=== PATIENT | male | born 1960 | race Caucasian/White ===

== ENCOUNTER 2017-10-14 09:15 | Emergency (ER) | payer BC ==
[2017-10-14] MEDS ORDERED: Sodium Chloride 0.9% 1,000 ML IV ONE (09:18)
[2017-10-14] MEDS ORDERED: Ketorolac 30 MG/ML SDV IVPUSH ONE (09:18)
[2017-10-14] MEDS ORDERED: Ondansetron 4 MG/2 ML SDV IVPUSH ONE (09:18)
--- NOTE | 2017-10-14 09:19 | EDM.PDOC ---
ED HPI GENERAL MEDICAL PROBLEM - General Stated Complaint: LOWER BACK AND RIGHT SIDE PAIN Time Seen by Provider: 10/14/17 09:19 Source of Information: Reports: Patient - History of Present Illness INITIAL COMMENTS - FREE TEXT/NARRATIVE: HISTORY AND PHYSICAL: History of present illness: [Patient presents with a history of right flank pain radiating to the groin 8 out of 10 prior to arrival pain resolved shortly after arrival no nausea vomiting chills sweats no fever] Review of systems: As per history of present illness and below otherwise all systems reviewed and negative. Past medical history: As per history of present illness and as reviewed below otherwise noncontributory. Surgical history: As per history of present illness and as reviewed below otherwise noncontributory. Social history: No reported history of drug or alcohol abuse. Family history: As per history of present illness and as reviewed below otherwise noncontributory. Physical exam: HEENT: Atraumatic, normocephalic, pupils reactive, negative for conjunctival pallor or scleral icterus, mucous membranes moist, throat clear, neck supple, nontender, trachea midline. Lungs: Clear to auscultation, breath sounds equal bilaterally, chest nontender. Heart: S1S2, regular, negative for clicks, rubs, or JVD. Abdomen: Soft, nondistended, nontender. Negative for masses or hepatosplenomegaly. Negative for costovertebral tenderness. Pelvis: Stable nontender. Genitourinary: Deferred. Rectal: Deferred. Extremities: Atraumatic, negative for cords or calf pain. Neurovascular unremarkable. Neuro: Awake, alert, oriented. Cranial nerves II through XII unremarkable. Cerebellum unremarkable. Motor and sensory unremarkable throughout. Exam nonfocal. Diagnostics: []CBC CMP lipase UA with culture stone sent for pathology Urine was filtered and 2 stones were able to be contact on urination is had past prior CT study and were noted in his bladder Therapeutics: [1 L normal saline bolus Toradol 30 mg IV Zofran 8 mg IV] Impression: Ureteral stones -passed, sent for culture and pathology Definitive disposition and diagnosis as appropriate pending reevaluation and review of above. Right Middle Back Pain Score (Numeric/FACES): 9 - Related Data Allergies Allergy/AdvReac Type Severity Reaction Status Date / Time omeprazole Allergy Anaphylactic Verified 10/14/17 09:34 Shock Home Meds: Home Meds Multivitamin [Multivitamins] 1 tab PO DAILY 05/01/16 [History] Past Medical History HEENT History: Reports: Allergic Rhinitis Endocrine/Metabolic History: Reports: Obesity/BMI 30+ - Past Surgical History Musculoskeletal Surgical History: Reports: Arthroscopic Knee Social & Family History - Family History Family Medical History: Noncontributory ED ROS GENERAL - Review of Systems Review Of Systems: See Below ED EXAM, GENERAL - Physical Exam Exam: See Below Course - Vital Signs Last Recorded V/S: Last Vital Signs Temp 98.7 F 10/14/17 09:27 Pulse 97 10/14/17 09:27 Resp 18 10/14/17 09:27 BP 130/96 H 10/14/17 09:27 Pulse Ox 94 L 10/14/17 09:27 - Orders/Labs/Meds Orders: Active Orders 24 hr Category Date Time Status Abdomen Pelvis wo Cont [CT] Stat Exams 10/14/17 09:18 Taken UA W/MICROSCOPIC [URIN] Stat Lab 10/14/17 10:31 Ordered Labs: Laboratory Tests 10/14/17 10/14/17 10/14/17 Range/Units 09:31 09:31 10:31 WBC 6.83 (4.0-11.0) K/uL RBC 4.89 (4.50-5.90) M/uL Hgb 15.9 (13.0-17.0) g/dL Hct 45.1 (38.0-50.0) % MCV 92.2 (80.0-98.0) fL MCH 32.5 H (27.0-32.0) pg MCHC 35.3 (31.0-37.0) g/dL RDW Std Deviation 43.3 (28.0-62.0) fl RDW Coeff of Luc 13 (11.0-15.0) % Plt Count 192 (150-400) K/uL MPV 10.80 (7.40-12.00) fL Neut % (Auto) 57.4 (48.0-80.0) % Lymph % (Auto) 32.4 (16.0-40.0) % [place] % (Auto) 7.8 (0.0-15.0) % Eos % (Auto) 2.0 (0.0-7.0) % Baso % (Auto) 0.4 (0.0-1.5) % Neut # (Auto) 3.9 (1.4-5.7) K/uL Lymph # (Auto) 2.2 (0.6-2.4) K/uL [place] # (Auto) 0.5 (0.0-0.8) K/uL Eos # (Auto) 0.1 (0.0-0.7) K/uL Baso # (Auto) 0.0 (0.0-0.1) K/uL Nucleated RBC % 0.0 /100WBC Nucleated RBCs # 0 K/uL Sodium 139 (136-148) mmol/L Potassium 4.6 (3.5-5.1) mmol/L Chloride 107 (98-107) mmol/L Carbon Dioxide 25.8 (21.0-32.0) mmol/L BUN 14 (7.0-18.0) mg/dL Creatinine 1.1 (0.8-1.3) mg/dL Est Cr Clr Drug Dosing TNP Estimated GFR (MDRD) > 60.0 ml/min Glucose 109 H (74-106) mg/dL Calcium 8.5 (8.5-10.1) mg/dL Total Bilirubin 0.4 (0.2-1.0) mg/dL AST 17 (15-37) IU/L ALT 20 (14-63) IU/L Alkaline Phosphatase 89 (46-116) U/L Total Protein 6.9 (6.4-8.2) g/dL Albumin 3.7 (3.4-5.0) g/dL Globulin 3.2 (2.0-3.5) g/dL Albumin/Globulin Ratio 1.2 L (1.3-2.8) Lipase 144 (73-393) U/L Urine Color YELLOW Urine Appearance CLEAR Urine pH 6.0 (5.0-8.0) Ur Specific [place] 1.020 (1.001-1.035) Urine Protein NEGATIVE (NEGATIVE) mg/dL Urine Glucose (UA) NEGATIVE (NEGATIVE) mg/dL Urine Ketones NEGATIVE (NEGATIVE) mg/dL Urine Occult Blood MODERATE (NEGATIVE) Urine Nitrite NEGATIVE (NEGATIVE) Urine Bilirubin NEGATIVE (NEGATIVE) Urine Urobilinogen 0.2 (<2.0) EU/dL Ur Leukocyte Esterase NEGATIVE (NEGATIVE) Meds: Medications Discontinued Medications Generic Name Dose Route Start Last Admin Trade Name Freq PRN Reason Stop Dose Admin Sodium Chloride 1,000 mls @ 999 mls/hr 10/14/17 09:18 10/14/17 09:56 Normal Saline IV 10/14/17 10:18 999 mls/hr STAT ONE Administration Ketorolac Tromethamine 30 mg 10/14/17 09:18 10/14/17 09:36 Toradol IVPUSH 10/14/17 09:19 30 mg ONETIME ONE Administration Ondansetron HCl 8 mg 10/14/17 09:18 10/14/17 09:36 Zofran IVPUSH 10/14/17 09:19 8 mg ONETIME ONE Administration Departure - Departure Time of Disposition: 11:04 Disposition: Home, Self-Care 01 Condition: Good Clinical Impression: Ureteral stone - Discharge Information Additional Instructions: The following information is given to patients seen in the emergency department who are being discharged to home. This information is to outline your options for follow-up care. We provide all patients seen in our emergency department with a follow-up referral. The need for follow-up, as well as the timing and circumstances, are variable depending upon the specifics of your emergency department visit. If you don't have a primary care physician on staff, we will provide you with a referral. We always advise you to contact your personal physician following an emergency department visit to inform them of the circumstance of the visit and for follow-up with them and/or the need for any referrals to a consulting specialist. The emergency department will also refer you to a specialist when appropriate. This referral assures that you have the opportunity for follow-up care with a specialist. All of these measure are taken in an effort to provide you with optimal care, which includes your follow-up. Under all circumstances we always encourage you to contact your private physician who remains a resource for coordinating your care. When calling for follow-up care, please make the office aware that this follow-up is from your recent emergency room visit. If for any reason you are refused follow-up, please contact the [facility] emergency department at and asked to speak to the emergency department charge nurse. - My Orders Last 24 Hours: My Active Orders 10/14/17 09:18 Abdomen Pelvis wo Cont [CT] Stat 10/14/17 10:31 UA W/MICROSCOPIC [URIN] Stat - Assessment/Plan Last 24 Hours: My Active Orders 10/14/17 09:18 Abdomen Pelvis wo Cont [CT] Stat 10/14/17 10:31 UA W/MICROSCOPIC [URIN] Stat
[2017-10-14 09:59] LABS: CHLORIDE,CL 107 mmol/L (98-107); SODIUM,NA 139 mmol/L (136-148)
[2017-10-14 11:22] VITALS: BP 135/90
--- NOTE | 2017-10-15 13:45 | CT ---
EXAM DATE: 10/14/17 PATIENT'S AGE: 57 Patient: SIRISHA TUCKER Facility: [place], [place] Site . Site : [id number] Study: CT Abdomen/Pelvis [id number]/22/2018 10:06:11 AM Ordering Physician: Doctor Ramirez Final Report: Indication: Pain Technique: Noncontrast CT abdomen and pelvis with coronal sagittal reformatted images obtained Comparison: No comparison studies are available. Findings: Heart size is normal. Lung bases are clear. No effusion. No pericardial effusion. Spleen pancreas, adrenal glands gallbladder is unremarkable. No abdominal aortic aneurysm. Unenhanced liver demonstrates scattered too small to characterize tiny low-density lesions. There is a 1.6 centimeter low-density lesion in the left lobe of liver which may represent a cyst. There is no biliary dilatation. No abdominal aortic aneurysm. Nonobstructing small stones within the right kidney. There is no hydronephrosis bilaterally. Possible left parapelvic cysts. Two punctate densities in the central pelvis between the bladder and prostate gland probably located in the bladder which could represent prior passed stones. Urinary bladder is otherwise unremarkable. Diverticulosis. Bowel otherwise appears unremarkable. Normal appendix. Fat containing umbilical hernia. No suspicious bony lesions. No inflammatory change. Mildly prominent left periaortic lymph node measuring 8 millimeters in short axis series 2, image 51. No suspicious bony lesions. Impression: 1. No acute findings in the abdomen or pelvis. 2. Two small punctate calcifications between the bladder and prostate gland probably in the bladder base that could represent passed stones. No hydronephrosis. Small nonobstructing stones in the right kidney. 3. Diverticulosis. Please note that all CT scans at this facility use dose modulation, iterative reconstruction, and/or weight-based dosing when appropriate to reduce radiation dose to as low as reasonably achievable. Dictated by Katie Davidson MD @ Oct 14 2017 10:18AM (Electronic Signature) Report Signed by Proxy. MTDD
== END 2017-10-14 11:18 | disposition home or self-care (01) ==
LOC: MW.ED 09:15
DX: N20.1 Calculus of ureter (principal); E66.9 Obesity, unspecified; Z88.8 Allergy status to other drugs, medicaments and biological substances
CPT/HCPCS: 36415; 74176; 80053; 81001; 83690; 85025; 87086; 96361; 96374; 96375; 99284; J1885; J2405; J7040; 88300

== ENCOUNTER 2019-06-09 12:17 | Day surgery (SDC) | payer BC ==
[~2019-06-09 12:17] MED LIST: Ketamine 500 mg/10 ML MDV ONE; Lactated Ringers 1,000 ML IV SCH; Lidocaine 2% 5 ML SDV ONE; Midazolam 1 MG/ML 2 ML SDV ONE; Propofol 200 MG/20 ML SDV ONE
--- NOTE | 2019-06-09 13:38 | PCM.PREANE ---
Preanesthetic Assessment - Anesthesia/Transfusion/Family Hx Anesthesia History: Prior Anesthesia Without Reaction Family History of Anesthesia Reaction: No Transfusion History: No Prior Transfusion(s) Intubation History: Unknown - Review of Systems General: No Symptoms Pulmonary: No Symptoms Cardiovascular: No Symptoms Gastrointestinal: No Symptoms, Other (large tubular adenomatous polyp 3 years ago) Neurological: No Symptoms Other: Reports: None - Physical Assessment Height: 6 ft Weight: 101.605 kg ASA Class: 2 Mental Status: Alert & Oriented x3 Airway Class: Mallampati = 2 Dentition: Reports: Normal Dentition Thyro-Mental Finger Breadths: 3 Mouth Opening Finger Breadths: 2 ROM/Head Extension: Full Lungs: Clear to Auscultation, Normal Respiratory Effort Cardiovascular: Regular Rate, Regular Rhythm - Allergies Allergies/Adverse Reactions: Allergies Allergy/AdvReac Type Severity Reaction Status Date / Time omeprazole Allergy Anaphylactic Verified 06/04/19 07:48 Shock - Blood Blood Available: No - Anesthesia Plan Pre-Op Medication Ordered: None - Acknowledgements Anesthesia Type Planned: MAC Pt an Appropriate Candidate for the Planned Anesthesia: Yes Alternatives and Risks of Anesthesia Discussed w Pt/Guardian: Yes Pt/Guardian Understands and Agrees with Anesthesia Plan: Yes PreAnesthesia Questionnaire HEENT History: Reports: Allergic Rhinitis, Other (See Below) Other HEENT History: wears glasses Cardiovascular History: Reports: None Respiratory History: Reports: None Gastrointestinal History: Reports: Colon Polyp, Diverticulosis, Other (See Below ) Other Gastrointestinal History: occasional heartburn Genitourinary History: Reports: Renal Calculus Musculoskeletal History: Reports: None Neurological History: Reports: None Psychiatric History: Reports: None Endocrine/Metabolic History: Reports: Obesity/BMI 30+ (BMI 30.4) Hematologic History: Reports: None Immunologic History: Reports: None Oncologic (Cancer) History: Reports: None Dermatologic History: Reports: None - Infectious Disease History Infectious Disease History: Reports: Chicken Pox - Past Surgical History Head Surgeries/Procedures: Reports: None HEENT Surgical History: Reports: None Cardiovascular Surgical History: Reports: None Respiratory Surgical History: Reports: None GI Surgical History: Reports: Colonoscopy Male Surgical History: Reports: None Endocrine Surgical History: Reports: None Neurological Surgical History: Reports: None Musculoskeletal Surgical History: Reports: Arthroscopic Knee Other Musculoskeletal Surgeries/Procedures:: Left knee scope Oncologic Surgical History: Reports: None Dermatological Surgical History: Reports: None - SUBSTANCE USE Smoking Status *Q: Current Some Day Smoker Tobacco Use Within Last Twelve Months: Cigarettes, Other (See Below) - HOME MEDS Home Medications: Home Meds Multivitamin [Multivitamins] 1 tab PO DAILY 05/01/16 [History] - CURRENT (IN HOUSE) MEDS Current Meds: Current Medications Lactated Ringer's (Ringers, Lactated) 1,000 mls @ 125 mls/hr IV ASDIRECTED LORA Discontinued Medications Ketamine HCl (Ketalar) Confirm Administered Dose 500 mg .ROUTE .STK-MED ONE Stop: 06/09/19 10:46 Lidocaine (Xylocaine-Mpf 2%) Confirm Administered Dose 5 ml .ROUTE .STK-MED ONE Stop: 06/09/19 08:02 Midazolam HCl (Versed 1 Mg/Ml) Confirm Administered Dose 2 mg .ROUTE .STK-MED ONE Stop: 06/09/19 08:02 Propofol (Diprivan 20 Ml) Confirm Administered Dose 400 mg .ROUTE .STK-MED ONE Stop: 06/09/19 08:02
--- NOTE | 2019-06-09 15:52 | PCM.OPNOTE ---
- General Post-Op/Procedure Note Date of Surgery/Procedure: 06/09/19 Operative Procedure(s): Colonoscopy with cold sigmoid & rectal polypectomies. Pre Op Diagnosis: Personal history of colon polyps Post-Op Diagnosis: Sigmoid & rectal polyps Anesthesia Technique: MAC (ASA II) Primary Surgeon: Petey Mata Condition: Good Free Text/Narrative:: DICTATION [id number] CPT CODE 81338
--- NOTE | 2019-06-09 15:58 | PCM.POSTAN ---
POST ANESTHESIA ASSESSMENT - MENTAL STATUS Mental Status: Alert, Oriented - VITAL SIGNS Vital Signs: Last Vital Signs Temp 36 C L 06/09/19 15:44 Pulse 75 06/09/19 15:54 Resp 15 06/09/19 15:54 BP 143/84 H 06/09/19 15:54 Pulse Ox 97 06/09/19 15:54 - RESPIRATORY Respiratory Status: Respiratory Rate WNL, Airway Patent, O2 Saturation Stable - CARDIOVASCULAR CV Status: Pulse Rate WNL, Blood Pressure Stable - GASTROINTESTINAL GI Status: No Symptoms - PAIN Pain Score: 0 - POST OP HYDRATION Hydration Status: Adequate & Stable - OBSERVATIONS Free Text/Narrative:: No anesthesia problems
[2019-06-09] MEDS ORDERED: Lactated Ringers 1,000 ML IV SCH (16:00)
--- NOTE | 2019-06-09 16:21 | OR ---
SURGEON: Petey Mata M.D. DATE OF PROCEDURE: 06/09/2019 OPERATION PERFORMED: Colonoscopy with cold sigmoid and rectal polypectomies. PRIMARY SURGEON: Petey Mata MD ANESTHESIA: MAC. ASA CLASSIFICATION: II. PREOPERATIVE DIAGNOSIS: Personal history of colon polyps. POSTOPERATIVE DIAGNOSIS: Sigmoid and rectal polyps. DESCRIPTION OF PROCEDURE: The patient was taken to the endoscopy room and positioned on the endoscopy table in the left lateral decubitus position. Time-out was called for appropriate identification of the patient procedure. Monitored anesthesia care was provided. The colonoscope was inserted into the rectum and advanced with minimal difficulty to the cecum where the colonoscope was retroflexed to visualize the ascending colon from below. The colonoscope was then straightened and slowly withdrawn. Cecum, ascending colon, hepatic flexure, transverse colon, splenic flexure, and descending colon showed no tumors, polyps, diverticula, or angiodysplastic changes. One small polyp was encountered in the sigmoid colon and removed with the cold biopsy forceps. No diverticular changes were noted in the sigmoid colon. The colonoscope was then withdrawn to the rectum where a second polyp was encountered and also removed with cold biopsy forceps. The colonoscope was then retroflexed to visualize the anal orifice from above. No tumors, polyps, or distal hemorrhoidal changes were noted. The colonoscope was then straightened, the rectum aspirated, and the colonoscope removed. The patient tolerated the procedure well and was taken to recovery room in stable condition. LITO / SERENA /[id number]
--- NOTE | 2019-06-09 16:23 | PCM48HPAN ---
Post Anesthesia Note - EVALUATION WITHIN 48HRS OF ANESTHETIC Vital Signs in Normal Range: Yes Patient Participated in Evaluation: Yes Respiratory Function Stable: Yes Airway Patent: Yes Cardiovascular Function Stable: Yes Hydration Status Stable: Yes Pain Control Satisfactory: Yes Nausea and Vomiting Control Satisfactory: Yes Mental Status Recovered: Yes Vital Signs: Last Vital Signs Temp 36 C L 06/09/19 15:44 Pulse 75 06/09/19 15:54 Resp 15 06/09/19 15:54 BP 143/84 H 06/09/19 15:54 Pulse Ox 97 06/09/19 15:54 - COMMENTS/OBSERVATIONS Free Text/Narrative:: No anesthesia problems
[2019-06-09 17:38] VITALS: BP 139/80; PULSE 72
== END 2019-06-09 16:30 | disposition home or self-care (01) ==
LOC: MW.SDS 12:17
PROVIDERS: ATTEND Surgery
DX: Z12.11 Encounter for screening for malignant neoplasm of colon (principal); K63.5 Polyp of colon; K62.1 Rectal polyp; F17.210 Nicotine dependence, cigarettes, uncomplicated; Z72.89 Other problems related to lifestyle; Z88.8 Allergy status to other drugs, medicaments and biological substances; Z86.018 Personal history of other benign neoplasm; Z98.890 Other specified postprocedural states; Z80.7 Family history of other malignant neoplasms of lymphoid, hematopoietic and related tissues; Z86.010 Personal history of colon polyps
CPT/HCPCS: 45380; 88305; J2001; J2250; J2704; J7120